=== PATIENT | female | born 1990 | race Hispanic/Latino ===

== ENCOUNTER 2017-07-05 22:52 | Emergency (ER) | payer OTHER ==
[2017-07-05 23:03] VITALS: O2SAT 100
[2017-07-05] MEDS ORDERED: Sodium Chloride 0.9% 1,000 ML IV STA (23:24)
--- NOTE | 2017-07-05 23:38 | ED PDOC ---
HPI: Female Pain Time Seen by Provider: 07/05/17 22:56 Chief Complaint (Nursing): Female Genitourinary Chief Complaint (Provider): Hematuria History Per: Patient History/Exam Limitations: no limitations Onset/Duration Of Symptoms: Days (x 1) Current Symptoms Are (Timing): Still Present Additional Complaint(s): Rosy is a 26 y/o female with no past medical history who presents to the ED with 1 day of hematuria. Patient admits to urinary urgency and frequency, but denies vaginal bleeding, fever, or abdominal pain. She has no surgical history or known allergies. Patient reports she smokes a few cigarettes a day, and has recently increased her alcohol intake. Her last drink was 2 days ago. She takes adderal as needed. Patient also notes a slight sore throat that started an hour ago. PMD: [facility] Past Medical History Reviewed: Historical Data, Nursing Documentation, Vital Signs Vital Signs: Last Vital Signs Temp 99.0 F 07/05/17 22:59 Pulse 120 H 07/05/17 22:59 Resp 16 07/05/17 22:59 BP 155/99 H 07/05/17 22:59 Pulse Ox 100 07/05/17 22:59 - Medical History PMH: No Chronic Diseases - Surgical History Surgical History: No Surg Hx - Family History Family History: States: Unknown Family Hx - Social History Current smoker - smoking cessation education provided: Yes (2 cigarettes/day) Ex-Smoker (has not smoked in the last 12 months): No Alcohol: Social - Home Medications Home Medications: Ambulatory Orders Medication Instructions Recorded Nitrofurantoin Macrocrystals 100 mg PO BID #14 cap 07/06/17 [Macrobid] Phenazopyridine HCl [Pyridium] 100 mg PO TID #6 tab 07/06/17 - Allergies Allergies/Adverse Reactions: Allergies Allergy/AdvReac Type Severity Reaction Status Date / Time No Known Allergies Allergy Verified 07/05/17 22:59 Review of Systems ROS Statement: Except As Marked, All Systems Reviewed And Found Negative Constitutional: Negative for: Fever Gastrointestinal: Negative for: Abdominal Pain Genitourinary Female: Positive for: Frequency (+ urgency), Hematuria. Negative for: Vaginal Bleeding Physical Exam - Reviewed Nursing Documentation Reviewed: Yes Vital Signs Reviewed: Yes - Physical Exam Appears: Positive for: Non-toxic, No Acute Distress Head Exam: Positive for: ATRAUMATIC, NORMAL INSPECTION, NORMOCEPHALIC Skin: Positive for: Normal Color, Warm, Dry Eye Exam: Positive for: Normal appearance, EOMI, PERRL. Negative for: Nystagmus ENT: Positive for: Normal ENT Inspection Neck: Positive for: Normal, Painless ROM, Supple Cardiovascular/Chest: Positive for: Tachycardia. Negative for: Edema, Murmur Respiratory: Positive for: Normal Breath Sounds. Negative for: Wheezing, Respiratory Distress Gastrointestinal/Abdominal: Positive for: Normal Exam, Bowel Sounds, Soft. Negative for: Tenderness Back: Positive for: Normal Inspection Extremity: Positive for: Normal ROM. Negative for: Pedal Edema, Deformity Neurologic/Psych: Positive for: Alert, Oriented, Mood/Affect (slightly agitated) - Laboratory Results Result Diagrams: 07/05/17 23:44 07/05/17 23:44 - ECG O2 Sat by Pulse Oximetry: 100 (RA) Pulse Ox Interpretation: Normal Medical Decision Making Medical Decision Making: Time: 23:21 Initial Plan: --CMP --CBC --Urine Culture --Urinalysis Time: 00:00 pt made aware of lab results and that urine is bloody and shows UTI. culture takes two days. --cefTRIAXone IV --Patient is signed out by me to Dr. Landon Leiva MD pending labs and reassessment. Scribe Attestation: Documented by Xiang Norman, acting as a scribe for Gretta Barnes MD Provider Scribe Attestation: All medical record entries made by the Scribe were at my direction and personally dictated by me. I have reviewed the chart and agree that the record accurately reflects my personal performance of the history, physical exam, medical decision making, and the department course for this patient. I have also personally directed, reviewed, and agree with the discharge instructions and disposition. Disposition - Clinical Impression Clinical Impression: Cystitis - Patient ED Disposition Is Patient to be Admitted: Transfer of Care - Disposition Disposition: Transfer of Care Disposition Time: 23:00 Condition: STABLE Prescriptions: Nitrofurantoin Macrocrystals [Macrobid] 100 mg PO BID #14 cap Phenazopyridine HCl [Pyridium] 100 mg PO TID #6 tab Instructions: Urinary Tract Infection in Women (ED) Forms: [employer] (Citizen Of [place]) Patient Signed Over To: Landon Leiva Handoff Comments: pending lab results, and strep test results and reevaluation
[2017-07-05 23:47] LABS: BASO # 0.1 K/uL (0.0-0.2); BASO % 0.6 % (0.0-2.0); EOS # 0.1 K/uL (0.0-0.7); EOS % 0.6 % (0.0-4.0); HEMATOCRIT 38.9 % (34.0-47.0); LYMPH % 19.2 % (20.0-40.0); MEAN CELL VOLUME 93.2 fl (81.0-99.0); MEAN CORPUSCULAR HEMOGLOBIN 31.7 pg (27.0-31.0); MEAN PLATELET VOLUME 7.4 fl (7.2-11.7); MONO # 0.8 K/uL (0.0-0.8); MONO % 7.4 % (0.0-10.0); NEUT # 7.5 K/uL (1.8-7.0); NEUT % 72.2 % (50.0-75.0); RED CELL DISTRIBUTION WIDTH 12.5 % (11.5-14.5); WHITE BLOOD COUNT 10.4 K/uL (4.8-10.8)
[2017-07-05 23:54] LABS: URINE BACTERIA MOD (<OCC); URINE BILIRUBIN NEGATIVE (NEGATIVE); URINE BLOOD LARGE (NEGATIVE); URINE COLOR AMBER (YELLOW); URINE GLUCOSE (UA) NEG (Normal); URINE KETONE NEGATIVE (NEGATIVE); URINE LEUKOCYTE ESTERASE MOD Leu/uL (Negative); URINE PROTEIN 100 mg/dL (NEGATIVE); URINE UROBILINOGEN 0.2-1.0 mg/dL (0.2-1.0)
[2017-07-05 23:56] LABS: ALB/GLOB RATIO 1.7 (1.0-2.1); ALKALINE PHOSPHATASE 62 U/L (38-126); ALT/SGPT 29 U/L (9-52); AST/SGOT 34 U/L (14-36); BILIRUBIN,TOTAL 0.3 mg/dl (0.2-1.3); BLOOD UREA NITROGEN 11 mg/dl (7-17); CALCIUM 9.9 mg/dL (8.4-10.2); CARBON DIOXIDE 24 mmol/L (22-30); CHLORIDE 103 mmol/L (98-107); GFR AFRICAN-AMERICAN > 60; GLUCOSE,RANDOM 92 mg/dL (65-105); POTASSIUM 3.7 MMOL/L (3.6-5.0); RBC URINE 1145 /hpf (0-3); SODIUM 141 mmol/l (132-148); TOTAL PROTEIN 7.9 G/DL (6.3-8.2); WBC URINE 71 /hpf (0-5)
[2017-07-06 00:02] VITALS: BP 128/89; PULSE 104; RESP 18
--- NOTE | 2017-07-06 00:05 | ED PDOC ---
- Laboratory Results Result Diagrams: 07/05/17 23:44 07/05/17 23:44 - ECG O2 Sat by Pulse Oximetry: 100 (RA) Pulse Ox Interpretation: Normal Medical Decision Making Medical Decision Making: Time: 00:00 --Patient is signed out to me by Dr. Gretta Barnes MD pending labs and reassessment. Time: 1:15 --Labs reviewed and showed no clinically significant abnormalities with exception of urine which showed a UTI --Results were explained at length to patient and mother who was at bedside --Patient reported that her symptoms have improved markedly --Patient is stable for discharge home with prescriptions for pyridium --All questions were answered and they expressed gratitude upon discharge home. Clinical Impression: Cystitis Scribe Attestation: Documented by Xiang Norman, acting as a scribe for Landon Leiva MD Provider Scribe Attestation: All medical record entries made by the Scribe were at my direction and personally dictated by me. I have reviewed the chart and agree that the record accurately reflects my personal performance of the history, physical exam, medical decision making, and the department course for this patient. I have also personally directed, reviewed, and agree with the discharge instructions and disposition. Disposition Counseled Patient/Family Regarding: Studies Performed, Diagnosis, Need For Followup, Rx Given - Clinical Impression Clinical Impression: Cystitis - POA Present On Arrival: None - Disposition Disposition: Routine/Home Disposition Time: 01:15 Condition: STABLE Prescriptions: Nitrofurantoin Macrocrystals [Macrobid] 100 mg PO BID #14 cap Phenazopyridine HCl [Pyridium] 100 mg PO TID #6 tab Instructions: Urinary Tract Infection in Women (ED) Forms: [employer] ([place])
[2017-07-06 00:14] VITALS: TEMP 98.9
[2017-07-06] MEDS ORDERED: cefTRIAXone IV 1 gm in Dextros 50 ML IVPB ONE (00:15)
[2017-07-06] MEDS ORDERED: cefTRIAXone IV 1 gm in Dextros 50 ML IVPB STA (00:19)
--- NOTE | 2017-07-06 07:56 | CARD ---
APPROVED REPORT EKG Measurement Heart [id number] <Conclusion> Sinus rhythm with 1st degree AV block Left axis deviation Abnormal ECG
== END 2017-07-06 01:25 | disposition home or self-care (01) ==
LOC: H.ER 22:52
DX: N30.90 Cystitis, unspecified without hematuria (principal)
CPT/HCPCS: 80053; 81003; 81025; 85025; 87070; 87086; 87430; 87491; 87591; 93005; 96365; 99284; J0696; J7040